=== PATIENT | male | born 1990 | race American Indian/Alaskan Native ===

== ENCOUNTER 2018-12-07 14:52 | Emergency (ER) | payer BC, OTHER ==
--- NOTE | 2018-12-07 14:56 | Event Note ---
ED Screening Note ED Screening Note: TO ER SP FALL 2 DAYS AGO, DOWN 10 STEPS HE DID NOT HURT INITIALLY BUT DID TODAY - SO HE DIDNT GO TO WORK. NO LOC NEURO INTACT BP ELEVATED- NO HX OF CIG/ETOH/THC PMH EFFUSION R KNEE PSH NONE RX NONE NEEDS WORK NOTE This initial assessment/diagnostic orders/clinical plan/treatment(s) is/are subject to change based on patients health status, clinical progression and re- assessment by fellow clinical providers in the ED. Further treatment and workup at subsequent clinical providers discretion. Patient/guardian urged not to elope from the ED as their condition may be serious if not clinically assessed and managed. Initial orders include:
[2018-12-07] MEDS ORDERED: IBUPROFEN PO ONE (14:59)
--- NOTE | 2018-12-07 17:11 | XRay Report ---
PROCEDURE: XR SPINE CERVICAL 2-3V TECHNIQUE: Frontal, lateral and odontoid views cervical spine HISTORY: PAIN SP FALL COMPARISONS: None FINDINGS: There is mild reversal of the normal lordotic curve of the cervical spine. The vertebral heights and disc spaces are maintained. There is no plain film evidence of fracture or subluxation. The soft tissues are unremarkable. IMPRESSION: 1. Mild reversal of the normal lordotic curve of the cervical spine. This can be seen with muscle spa sm. 2. No plain film evidence of fracture or subluxation. Cervical spine fractures can be missed with plain film imaging. If there is a clinical concern for fr acture, CT imaging would be helpful. This document is electronically signed by Leti Pisano MD., December 07 2018 05:09:23 PM ET
[2018-12-07 17:39] VITALS: BP 145/97
--- NOTE | 2018-12-07 17:41 | Emergency Department Report ---
ED Fall HPI - General Chief Complaint: Fall Stated Complaint: FALL Time Seen by Provider: 12/07/18 14:56 Source: patient Mode of arrival: Ambulatory - History of Present Illness Initial Comments: Patient is a 28-year-old male who presents to the emergency Department with complaints of a fall down 10 steps inside the house that occurred 2 days ago. He states this morning he woke up and began to have neck pain. He denies ever injuring his neck before. He denies any loss of consciousness, numbness, or weakness. He does not report any other injury. He denies any past medical history. He denies any allergies to medications. denies being on any daily medications. He denies any history of high blood pressure. - Related Data Previous Rx's Medication Instructions Recorded Last Taken Type Cyclobenzaprine [Flexeril] 10 mg PO QHS PRN #10 tablet 12/07/18 Unknown Rx Ibuprofen [Motrin 800 MG tab] 800 mg PO Q8HR PRN #14 tablet 12/07/18 Unknown Rx Allergies Allergy/AdvReac Type Severity Reaction Status Date / Time No Known Allergies Allergy Verified 12/07/18 14:55 ED Review of Systems ROS: Stated complaint: FALL Other details as noted in HPI Comment: All other systems reviewed and negative ED Past Medical Hx - Past Medical History Previous Medical History?: Yes Additional medical history: right knee pain/ligament tear - Surgical History Past Surgical History?: No - Social History Smoking Status: Current Every Day Smoker Substance Use Type: Alcohol - Medications Home Medications: Home Medications Medication Instructions Recorded Confirmed Last Taken Type Cyclobenzaprine [Flexeril] 10 mg PO QHS PRN #10 tablet 12/07/18 Unknown Rx Ibuprofen [Motrin 800 MG tab] 800 mg PO Q8HR PRN #14 tablet 12/07/18 Unknown Rx ED Physical Exam - General Limitations: No Limitations General appearance: alert, in no apparent distress - Head Head exam: Present: atraumatic, normocephalic - Eye Eye exam: Present: normal appearance, PERRL, EOMI - ENT ENT exam: Present: mucous membranes moist - Neck Neck exam: Present: normal inspection, tenderness (bilateral C-spine paraspinal muscular TTP, no midline C-spine tenderness, no step offs, no deformities), full ROM - Respiratory Respiratory exam: Present: normal lung sounds bilaterally. Absent: respiratory distress, wheezes, rales, rhonchi, stridor, chest wall tenderness, accessory muscle use, decreased breath sounds, prolonged expiratory - Cardiovascular Cardiovascular Exam: Present: regular rate, normal rhythm, normal heart sounds. Absent: systolic murmur, diastolic murmur, rubs, gallop - Back Exam Back exam: Present: normal inspection, full ROM. Absent: paraspinal tenderness, vertebral tenderness - Neurological Exam Neurological exam: Present: alert, oriented X3, CN II-XII intact, normal gait, other (5/5 strength in the BUE/BLE, equal convention services director strength, sensation intact, no focal neuro deficit). Absent: motor sensory deficit - Psychiatric Psychiatric exam: Present: normal affect, normal mood - Skin Skin exam: Present: warm, dry, intact ED Course Vital Signs 12/07/18 12/07/18 15:01 17:38 Temperature 97.8 F 98.1 F Pulse Rate 106 H 88 Respiratory 16 20 Rate Blood Pressure 162/113 Blood Pressure 145/97 [Left] O2 Sat by Pulse 99 98 Oximetry ED Medical Decision Making - Radiology Data Radiology results: report reviewed PROCEDURE: XR SPINE CERVICAL 2-3V TECHNIQUE: Frontal, lateral and odontoid views cervical spine HISTORY: PAIN SP FALL COMPARISONS: None FINDINGS: There is mild reversal of the normal lordotic curve of the cervical spine. The vertebral heights and disc spaces are maintained. There is no plain film evidence of fracture or subluxation. The soft tissues are unremarkable. IMPRESSION: 1. Mild reversal of the normal lordotic curve of the cervical spine. This can be seen with muscle spasm. 2. No plain film evidence of fracture or subluxation. Cervical spine fractures can be missed with plain film imaging. If there is a clinical concern for fracture, CT imaging would be helpful. This document is electronically signed by Leti Pisano MD., December 07 2018 05:09:23 PM ET Transcribed By: ED Dictated By: LETI PISANO MD Electronically Authenticated By: LETI PISANO MD Signed Date/Time: 12/07/18 1711 - Medical Decision Making Patient is a 28-year-old male who presents to the emergency Department with complaints of a fall down 10 steps inside the house that occurred 2 days ago. He states this morning he woke up and began to have neck pain. He denies ever injuring his neck before. He denies any loss of consciousness, numbness, or weakness. He does not report any other injury. He denies any past medical history. He denies any allergies to medications. denies being on any daily medications. He denies any history of high blood pressure. on exam: bilateral C-spine paraspinal muscular TTP, no midline C-spine tenderness, no step offs, no deformities, no neuro deficits. XR C-spine: 1. Mild reversal of the normal lordotic curve of the cervical spine. This can be seen with muscle spasm.2. No plain film evidence of fracture or subluxation. repeat BP improved. advised pt to follow up with PCP in the next 2-3 days. pt given anti-inflammatory and muscle relaxer. advised to please take medication as prescribed as needed. Do not drive or operate heavy machinery while taking muscle relaxer. May use ice, rest, heat, epsom salt bath. Follow-up with primary care doctor in the next 2-3 days. Return to emergency room for any new or worsening symptoms. - Differential Diagnosis strain, sprain, fx, dislocation, spasm Critical care attestation.: If time is entered above; I have spent that time in minutes in the direct care of this critically ill patient, excluding procedure time. ED Disposition Clinical Impression: Neck pain Fall Qualifiers: Encounter type: initial encounter Qualified Code(s): W19.XXXA - Unspecified fall, initial encounter Disposition: TO HOME OR SELFCARE Is pt being admited?: No Does the pt Need Aspirin: No Condition: Stable Instructions: Muscle Strain (ED) Additional Instructions: Please take medication as prescribed as needed. Do not drive or operate heavy machinery while taking muscle relaxer. May use ice, rest, heat, epsom salt bath. Follow-up with primary care doctor in the next 2-3 days. Return to emergency room for any new or worsening symptoms. Prescriptions: Cyclobenzaprine [Flexeril] 10 mg PO QHS PRN #10 tablet PRN Reason: Muscle Spasm Ibuprofen [Motrin 800 MG tab] 800 mg PO Q8HR PRN #14 tablet PRN Reason: Pain, Moderate (4-6) Referrals: SON QUEEN MD [Primary Care Provider] - 2-3 Days Forms: Work/School Release Form(ED) Time of Disposition: 17:39 Print Language: LIBYAN
== END 2018-12-07 17:41 | disposition home or self-care (01) ==
LOC: ED 14:52
DX: M54.2 Cervicalgia (principal); F17.200 Nicotine dependence, unspecified, uncomplicated
CPT/HCPCS: 72040